=== PATIENT | male | born 1960 | race Caucasian/White ===

== ENCOUNTER 2020-11-01 01:11 | Day surgery (SDC) | payer BC, SELFPAY ==
[2020-10-17 14:49] VITALS: BMI 31.1
[2020-11-01 11:07] VITALS: BP 129/76; PULSE 68; RESP 20; TEMP 36.3; O2SAT 98; BMI 31.0
[2020-11-01] MEDS: LACTATED RINGERS 1,000 ML 150 ML IV CONT (11:17)
[2020-11-01 11:18] LABS: Glucose Point of Care 125 mg/dl (65-105)
--- NOTE | 2020-11-01 11:35 | WPDANESEPPF ---
Anes - Initial Pre Proc Eval Procedure: Operation Date: 11/01/20 12:00 Proposed Procedures p Colonoscopy - Kirt Hagan MD Date/Time: 11/01/20 11:35 Surgeon: Kirt Hagan MD Pre Op Diagnosis: positive cologuard Patient Data Age: 60 Gender: M Height: 1.73 m Weight: 92.7 kg Last Vital Signs Temp 97.4 F L 11/01/20 11:07 Pulse 68 11/01/20 11:07 Resp 20 11/01/20 11:07 BP 129/76 11/01/20 11:07 Pulse Ox 98 11/01/20 11:07 Allergies Allergy/AdvReac Type Severity Reaction Status Date / Time NO KNOWN DRUG ALLERGIES Allergy Y Uncoded 11/01/20 07:46 (Class Allergy) Home Medications Medication Instructions Recorded Confirmed Type atorvastatin 40 mg PO DAILY 10/17/20 10/17/20 History dapagliflozin-metformin [Xigduo XR] 1 tablet PO DAILY 10/17/20 10/17/20 History lisinopril 10 mg PO DAILY 10/17/20 10/17/20 History Laboratory Tests 11/01/20 11:15 POC Capillary Glucose 125 mg/dl H mg/dl (65-105) Patient hx anesthesia problems: none Family hx anesthesia problems: none Results Review: All pre-operative results and documents have been reviewed as part of the pre-operative evaluation. [facility] Family History Family History (Updated 10/05/13 @ 07:13 by DOCTOR UNKNOWN) Mother Family history of lung cancer Father Family history of heart disease in male family member before age 55 Social History Social History Smoking status: Never smoker Alcohol intake: current Drinks per week: 12 Living arrangements: with family Spiritual care concerns: No Anes - Eval Final PreProcedure Day of Procedure 11/01/20 11:35 Patient weight: obese Heart: regular rate and rhythm Lungs: clear to auscultation Airway: Mallampati scale class II Neurological: alert and oriented Last oral intake: >/= 8 hours ASA classification: III Emergent: no Anesthetic plan: proceed Anesthesia type and monitoring: general GIVS and standard monitoring Results Review: All pre-operative results and documents have been reviewed as part of the pre-operative evaluation. Informed Consent: The patient's anesthetic plan and its attendant risks and benefits were discussed with the patient/family/POA. Questions were solicited and answers provided to the satisfaction of the patient/family/POA.
--- NOTE | 2020-11-01 11:46 | PM.HPGS ---
History of Present Illness History of Present Illness Consent: Risks, benefits, and alternatives have been discussed and questions answered. Patient agrees to proceed with procedure. Chief complaint: positive cologuard Narrative: Leonel Crowell is a 60 year old male with last colonoscopy 10 years ago and recent positive cologuard Review of Systems Constitutional: Constitutional: Denies headache(s) and Denies weakness Eyes: Eyes: Denies blurry vision ENT: Reports Normal hearing present, Denies headache(s) and Denies neck pain Cardiovascular: Cardiovascular: Denies chest pain and Denies dyspnea Respiratory: Respiratory: Denies dyspnea Gastrointestinal: Gastrointestinal: Reports no additional gastrointestinal complaints Genitourinary: Genitourinary: Denies dysuria Musculoskeletal: Musculoskeletal: Denies neck pain Integumentary/Breasts: Skin/Breast: Denies dry skin Neurologic: Reports Normal hearing present, Denies headache(s) and Denies weakness Psychiatric: Psychiatric: Denies anxiety Endocrine: Endocrine: Denies change in body appearance Hematologic/Lymphatic: Hematologic/Lymphatic: Denies easy bleeding Allergic/Immunologic: Allergic/Immunologic: Denies urticaria PMFSH Past Medical History Medical History (Updated 11/01/20 @ 11:46 by Kirt Hagan MD) Positive colorectal cancer screening using Cologuard test Family History Family History (Updated 10/05/13 @ 07:13 by DOCTOR UNKNOWN) Mother Family history of lung cancer Father Family history of heart disease in male family member before age 55 Social History Social History Smoking status: Never smoker Alcohol intake: current Drinks per week: 12 Living arrangements: with family Spiritual care concerns: No Meds Home Medications and Allergies Home Medications Medication Instructions Recorded Confirmed Type atorvastatin 40 mg PO DAILY 10/17/20 10/17/20 History dapagliflozin-metformin [Xigduo XR] 1 tablet PO DAILY 10/17/20 10/17/20 History lisinopril 10 mg PO DAILY 10/17/20 10/17/20 History Allergies Allergy/AdvReac Type Severity Reaction Status Date / Time NO KNOWN DRUG ALLERGIES Allergy Y Uncoded 11/01/20 07:46 (Class Allergy) Vital Signs Vital Signs - 24 hr 11/01/20 11:07 Temperature 97.4 F L Pulse Rate 68 Respiratory Rate 20 Blood Pressure 129/76 Pulse Oximetry 98 Exam Const: General: comfortable and no acute distress HENMT: General nose exam: Normal nares present Eyes: General: appearance normal, both eyes and all related structures Neck: Neck: no JVD Resp: Auscultation: clear to auscultation bilaterally Cardio: Rate: regular rate Rhythm: regular rhythm GI: Inspection: non-distended GI Palp: Yes Soft to palpation Skin: General skin exam: normal color Neuro: General: gait normal Speech: normal speech Extrem: General: normal to inspection Psych: Mental Status: mental status grossly normal Assessment and Plan Assessment and plan (1) Positive colorectal cancer screening using Cologuard test: Code(s): R19.5 - Other fecal abnormalities Status: Acute Assessment and Plan: colonoscopy
[2020-11-01 12:20] VITALS: BP 112/74; PULSE 59; RESP 14; O2SAT 98
[2020-11-01 12:30] VITALS: BP 134/74; PULSE 66; RESP 18; O2SAT 95
[2020-11-01 12:40] VITALS: BP 157/85; PULSE 56; RESP 20; O2SAT 98
== END 2020-11-01 12:54 | disposition home or self-care (01) ==
PROVIDERS: PCP Physician Assistant; Visit Provider Internal Medicine Gastroenterology
PROC: 0DJD8ZZ Inspection of Lower Intestinal Tract, Via Natural or Artificial Opening Endoscopic (ICD-10-PCS; CPT 45378; principal; 2020-11-01 12:00)
DX: R19.5 Other fecal abnormalities (principal); D12.3 Benign neoplasm of transverse colon; K64.8 Other hemorrhoids; K63.5 Polyp of colon; K57.30 Diverticulosis of large intestine without perforation or abscess without bleeding; E66.9 Obesity, unspecified; Z68.31 Body mass index [BMI] 31.0-31.9, adult
CPT/HCPCS: 45385; 82948; 88305; J2001; J2704; J7120

== ENCOUNTER → 2022-01-28 10:05 | Outpatient (CLI) | payer BC, SELFPAY ==
--- NOTE | ~2022-01-28 | XR_ITS ---
Lumbosacral Spine: AP and lateral views Clinical History: Pain Findings: The normal lordotic curve is maintained. The vertebral bodies and posterior elements are i ntact. The intervertebral disc spaces are preserved. Mild facet joint degenerative changes are prese nt in the lumbar spine. The sacroiliac joints are normally outlined. Impression: Mild facet joint degenerative changes. Reviewed, dictated and finalized at location . US PRESIDENT Impression: Mild facet joint degenerative changes.
--- NOTE | ~2022-01-28 | XR_ITS ---
Cervical Spine: AP, lateral, open-mouth views Clinical History: Pain Findings: No fracture seen. 3 mm anterolisthesis of C3 over C4 noted. The intervertebral disc spaces are well maintained. Pre-vertebral soft tissues are unremarkable. Impression: 3 mm anterolisthesis of C3 over C4. Reviewed, dictated and finalized at [facility]. [employer] ACCOUNT EXECUTIVE Impression: 3 mm anterolisthesis of C3 over C4.
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
== END ==
PROVIDERS: PCP Physician Assistant; Visit Provider Physician Assistant
DX: S13.4XXA Sprain of ligaments of cervical spine, initial encounter (principal); T14.90XA Injury, unspecified, initial encounter; X58.XXXA Exposure to other specified factors, initial encounter; M54.50 Low back pain, unspecified
CPT/HCPCS: 72050; 72070; 72100

== ENCOUNTER 2023-07-07 14:22 | Outpatient (CLI) | payer BC, SELFPAY ==
--- NOTE | ~2023-07-07 | XR_ITS ---
Left Hand Technique: PA, oblique, and lateral views were obtained. Clinical History: Pain Findings: No acute fracture or dislocation is seen. Osseous alignment is anatomic. Joint spaces are p reserved. Soft tissues are unremarkable. Impression: Unremarkable left hand. Reviewed, dictated and finalized at location M. Impression: Unremarkable left hand.
== END 2023-07-07 14:23 ==
PROVIDERS: PCP Physician Assistant; Visit Provider Physician Assistant
DX: M79.642 Pain in left hand (principal)
CPT/HCPCS: 73130